=== PATIENT | male | born 1945 | race Caucasian/White ===

== ENCOUNTER → 2017-04-11 | Outpatient (CLI) | payer OTHER ==
--- NOTE | 2017-04-11 14:10 | DIREP ---
PROCEDURE:CHEST 2 VIEWS COMPARISON:None. INDICATIONS:CHEST PAIN FINDINGS: LUNGS/PLEURA:No significant pulmonary parenchymal abnormalities or pleural effusion. CARDIAC:Normal cardiac silhouette and normal pulmonary vascularity. Calcified tortuous aorta. MEDIASTINUM:Normal. BONES:Bridging lower anterior thoracic osteophytes. OTHER:No additional findings. CONCLUSION:No acute cardiopulmonary process. Dictated by: Stella Kidd MD on 04/11/2017 at 02:08 PM
--- NOTE | 2017-04-14 12:14 | ECHO ---
INDICATION: A 72[facility]year-old [facility] patient was elected by his primary physician for evaluation of ejection fraction for any structural or functional heart disease. FINDINGS: 1. Study quality is good. 2. Underlying rhythm is sinus rhythm. 3. LV function was preserved, around 50%-55%. Some anteroseptal hypokinesia noted. Mild degree of concentric LVH. No LVOT obstruction. Septal thickness was 1.1 cm. Normal function otherwise. 4. RV size and EF were normal. 5. LVOT dimension was increased at 2.4 cm. No obstruction. 6. Both atria showed minimal dilatation. 7. Mitral valve showed calcification of the valve, adequate opening was noted. Diastolic parameters were reversed with E to A reversal suggestive of grade 1 diastolic dysfunction. Doppler signal examination across the mitral valve estimated a mean gradient of 2 mmHg. No stenosis. 8. Aortic valve morphology is uncertain, likely trileaflet. Doppler signal examination across the valve estimated the mean velocity of 1 m/sec. Aortic valve area was around 4 cm2 by VTI method. Normal findings. Trace regurgitation was seen. 9. No pericardial effusion was noted. 10. Inferior vena cava was normal in size at 1.9 cm. 11. Pulmonary artery systolic pressure was around 20 mmHg by examination of the mild tricuspid regurgitation. IMPRESSION: 1. Ejection fraction 55% with anteroseptal hypokinesia. 2. Mild concentric left ventricular hypertrophy. 3. Increased left ventricular outflow tract dimension without obstruction. 4. Trace aortic regurgitation. No stenosis. 5. Grade 1 diastolic dysfunction. 6. No significant mitral pathology other than mild calcification. 7. Normal pulmonary artery systolic pressure. 8. No pericardial effusion. 9. Normal inferior vena cava size. Nova Martel MD,[facility] Date Dictated: 04/13/2017 Date Transcribed: 04/13/2017 [facility]
== END | disposition home or self-care (01) ==
LOC: RT 12:57
PROVIDERS: ATTEND Pediatrics
DX: I08.2 Rheumatic disorders of both aortic and tricuspid valves (principal)
CPT/HCPCS: 71020; 93005; 93307

== ENCOUNTER → 2025-08-05 | Outpatient (CLI) | payer OTHER | END | disposition home or self-care (01) | LOC: RAD 10:47 | PROVIDERS: ATTEND Nurse Practitioner | DX: J98.11 Atelectasis (principal); Z00.00 Encounter for general adult medical examination without abnormal findings; M47.814 Spondylosis without myelopathy or radiculopathy, thoracic region | CPT/HCPCS: 71046 ==